=== PATIENT | male | born 1990 | race Caucasian/White ===

== ENCOUNTER 2016-12-19 03:04 | Emergency (ER) | payer OTHER ==
[2016-12-19 03:19] VITALS: RESP 16; TEMP 97.4
[2016-12-19] MEDS ORDERED: APAP/HYDROCODONE 325/5 TAB PO ONE (03:36)
[2016-12-19] MEDS ORDERED: IBUPROFEN 600 MG TAB PO ONE (03:38)
[2016-12-19] MEDS ORDERED: IBUPROFEN 600 MG TAB ONE (03:42)
[2016-12-19] MEDS ORDERED: APAP/HYDROCODONE 325/5 TAB ONE (03:42)
[2016-12-19 03:49] VITALS: BP 126/78; PULSE 100; O2SAT 94
== END 2016-12-19 03:45 | disposition home or self-care (01) | DRG 605 ==
LOC: ED 03:04
DX: S20.211A Contusion of right front wall of thorax, initial encounter (principal); V89.2XXA Person injured in unspecified motor-vehicle accident, traffic, initial encounter
CPT/HCPCS: 71101; 99282